=== PATIENT | female | born 1950 | race Caucasian/White ===

== ENCOUNTER → 2023-07-10 14:44 | Outpatient (REF) | payer MEDICARE, OTHER, SELFPAY | LOC: WDC 14:44 | PROVIDERS: ATTENDING PHYSICIAN Nurse Practitioner | DX: R92.2 Inconclusive mammogram (principal) | CPT/HCPCS: 76641 ==

== ENCOUNTER → 2023-11-05 11:12 | Outpatient (REF) | payer MEDICARE, OTHER, SELFPAY | LOC: HWRAD 11:12 | PROVIDERS: ATTENDING PHYSICIAN Internal Medicine Critical Care Medicine; FAMILY PHYSICIAN Nurse Practitioner | DX: Z87.891 Personal history of nicotine dependence (principal) | CPT/HCPCS: 71271 ==

== ENCOUNTER → 2024-04-29 13:32 | Outpatient (REF) | payer MEDICARE, OTHER, SELFPAY | LOC: HWWDC 13:32 | DX: Z12.31 Encounter for screening mammogram for malignant neoplasm of breast (principal) | CPT/HCPCS: 77063; 77067 ==

== ENCOUNTER → 2024-06-05 10:23 | Outpatient (REF) | payer MEDICARE, OTHER, SELFPAY | LOC: MRI 3T 10:23 | PROVIDERS: ATTENDING PHYSICIAN Pain Medicine Interventional Pain Medicine | DX: M54.16 Radiculopathy, lumbar region (principal) | CPT/HCPCS: 72148 ==

== ENCOUNTER → 2024-12-02 13:56 | Outpatient (REF) | payer MEDICARE, OTHER, SELFPAY | LOC: HWRAD 13:56 | PROVIDERS: ATTENDING PHYSICIAN Internal Medicine Critical Care Medicine | DX: Z87.891 Personal history of nicotine dependence (principal); R91.1 Solitary pulmonary nodule | CPT/HCPCS: 71271 ==